=== PATIENT | male | born 1940 | race Caucasian/White ===

== ENCOUNTER 2017-02-26 19:25 | Emergency (ER) | payer MEDICARE ==
[~2017-02-26] VITALS: Ht 177.8 cm; Wt 111.8 kg
[~2017-02-26 19:25] MED LIST: AMLO10TA2 PO; ATOR40TA78 PO; FENO160T PO; FINA5TAB PO; LINA5TAB PO; LOSA100T6 PO; NIAC500T26 PO; TAMS-11 PO
[2017-02-26 21:07] VITALS: BP 179/75
== END 2017-02-26 21:44 | disposition home or self-care (01) ==
LOC: ED 20:42
DX: Z46.6 Encounter for fitting and adjustment of urinary device (principal); I25.10 Atherosclerotic heart disease of native coronary artery without angina pectoris; E11.9 Type 2 diabetes mellitus without complications; E78.00 Pure hypercholesterolemia, unspecified; I10 Essential (primary) hypertension
CPT/HCPCS: 99284

== ENCOUNTER 2017-04-02 13:08 | Emergency (ER) | payer MEDICARE ==
[~2017-04-02] VITALS: Ht 177.8 cm; Wt 110.7 kg
[2017-04-02 13:18] VITALS: BP 159/84
== END 2017-04-02 16:08 | disposition home or self-care (01) ==
LOC: ED 16:00
DX: N30.01 Acute cystitis with hematuria (principal); E11.9 Type 2 diabetes mellitus without complications; I11.9 Hypertensive heart disease without heart failure
CPT/HCPCS: 51702; 81001; 87077; 87086; 87186; 93005; 99285

== ENCOUNTER → 2017-07-18 | Outpatient (CLI) | payer MEDICARE | END | disposition home or self-care (01) | LOC: CFH 08:01 | PROVIDERS: ATTEND Physician Assistant | DX: I34.0 Nonrheumatic mitral (valve) insufficiency (principal); I25.9 Chronic ischemic heart disease, unspecified; I13.0 Hypertensive heart and chronic kidney disease with heart failure and stage 1 through stage 4 chronic kidney disease, or unspecified chronic kidney disease; E11.22 Type 2 diabetes mellitus with diabetic chronic kidney disease; N18.9 Chronic kidney disease, unspecified; I50.9 Heart failure, unspecified; E78.5 Hyperlipidemia, unspecified; I25.2 Old myocardial infarction; E78.1 Pure hyperglyceridemia; N40.1 Benign prostatic hyperplasia with lower urinary tract symptoms; R35.0 Frequency of micturition; I49.9 Cardiac arrhythmia, unspecified; D64.9 Anemia, unspecified; R97.20 Elevated prostate specific antigen [PSA]; G47.09 Other insomnia | CPT/HCPCS: 93306 ==

== ENCOUNTER 2017-07-27 09:23 | Inpatient (IN) | payer MEDICARE ==
[~2017-07-27] VITALS: Ht 177.8 cm; Wt 107.7 kg
[2017-07-27] MEDS ORDERED: ASPIRIN 81 MG TABLET CHEW PO ONE (10:00)
[2017-07-27] MEDS ORDERED: SODIUM CHLORIDE FLUSH 10ML SYR IVF ONE (10:00)
[2017-07-27 10:16] LABS: BASOPHILS # (AUTO) 0.02 x10^3/uL (0-0.1); BASOPHILS % (AUTO) 0 % (0-1); EOSINOPHILS # (AUTO) 0.16 x10^3/uL (0-0.4); EOSINOPHILS % (AUTO) 1 % (1-7); LYMPHOCYTES # (AUTO) 1.36 x10^3/uL (1-3.4); LYMPHOCYTES % (AUTO) 11 % (22-44); MD NO; MEAN CORPUSCULAR HEMOGLOBIN 30.2 pg (27.5-34.5); MEAN CORPUSCULAR HGB CONC 33.7 g/dL (33.2-36.2); MEAN CORPUSCULAR VOLUME 89.7 fL (81-97); MEAN PLATELET VOLUME 7.9 fL (7.4-10.4); MONOCYTES # (AUTO) 0.74 x10^3/uL (0.2-0.8); MONOCYTES % (AUTO) 6 % (2-9); NEUTROPHILS % (AUTO) 81 % (42-75); PLATELET COUNT 284 x10^3/uL (130-400); RED BLOOD COUNT 4.11 x10^6/uL (4.38-5.82); RED CELL DISTRIBUTION WIDTH 15.1 % (9.4-14.8)
[2017-07-27 10:27] LABS: ALANINE AMINOTRANSFERASE 22 U/L (12-78); ALBUMIN 3.8 g/dL (3.4-5.0); ANION GAP 11 mmol/L (5-15); CALCIUM 8.8 mg/dL (8.5-10.1); CHLORIDE 107 mmol/L (98-107); CREATININE 1.96 mg/dL (0.7-1.3)
[2017-07-27] MEDS ORDERED: ASPIRIN 81 MG TABLET CHEW ONE (10:27)
[2017-07-27 10:32] LABS: ALKALINE PHOSPHATASE 48 U/L (45-117); BILIRUBIN,TOTAL 0.7 mg/dL (0.2-1.0); TROPONIN I < 0.015 ng/mL (0.000-0.045)
[2017-07-27 10:42] LABS: INTERNATIONAL NORMALIZED RATIO 1.23 (0.93-1.1); PROTHROMBIN TIME 12.7 Seconds (9.6-11.5)
[2017-07-27] MEDS ORDERED: ACETAMINOPHEN 325 MG TABLET PO PRN (13:00)
[2017-07-27] MEDS ORDERED: ENALAPRILAT 1.25 MG/ML, 2ML IVPush PRN (13:00)
[2017-07-27] MEDS ORDERED: morphine SULFATE 10 MG/ML, 1ML IVPush PRN (13:00)
[2017-07-27] MEDS ORDERED: TEMAZEPAM 15 MG CAPSULE PO PRN (13:00)
[2017-07-27] MEDS ORDERED: ONDANSETRON ODT 4 MG PO PRN (13:00)
[2017-07-27] MEDS ORDERED: NITROGLYCERIN 0.4 MG BOTTLE (25 TABS) SL PRN (13:00)
[2017-07-27 13:34] LABS: TROPONIN I < 0.015 ng/mL (0.000-0.045)
[2017-07-27] MEDS ORDERED: AMLODIPINE 5 MG TABLET ONE (14:28)
[2017-07-27] MEDS: AMLODIPINE 5 MG TABLET PO SCH (14:31)
[2017-07-27 14:57] VITALS: BP 182/85
[2017-07-27 17:18] VITALS: BP 143/78
[2017-07-27 19:26] VITALS: BP 148/89
[2017-07-27 19:27] LABS: TROPONIN I < 0.015 ng/mL (0.000-0.045)
[2017-07-27] MEDS: ATORVASTATIN 40 MG TABLET PO SCH (20:36)
[2017-07-28 00:23] LABS: BASOPHILS # (AUTO) 0.04 x10^3/uL (0-0.1); BASOPHILS % (AUTO) 0 % (0-1); EOSINOPHILS # (AUTO) 0.17 x10^3/uL (0-0.4); EOSINOPHILS % (AUTO) 2 % (1-7); LYMPHOCYTES % (AUTO) 16 % (22-44); MD NO; MEAN CORPUSCULAR HEMOGLOBIN 29.8 pg (27.5-34.5); MEAN CORPUSCULAR HGB CONC 33.2 g/dL (33.2-36.2); MEAN CORPUSCULAR VOLUME 89.8 fL (81-97); MONOCYTES # (AUTO) 0.65 x10^3/uL (0.2-0.8); MONOCYTES % (AUTO) 6 % (2-9); NEUTROPHILS # (AUTO) 8.33 x10^3/uL (1.8-6.8); NEUTROPHILS % (AUTO) 76 % (42-75); PLATELET COUNT 253 x10^3/uL (130-400); RED BLOOD COUNT 3.79 x10^6/uL (4.38-5.82); RED CELL DISTRIBUTION WIDTH 15.2 % (9.4-14.8)
[2017-07-28 00:40] VITALS: BP 131/81
[2017-07-28] MEDS: OPIUM/BELLADONNA SUPP.RECT 16.2-30 MG PR PRN (02:56)
[2017-07-28 05:33] LABS: BASOPHILS # (AUTO) 0.02 x10^3/uL (0-0.1); BASOPHILS % (AUTO) 0 % (0-1); EOSINOPHILS # (AUTO) 0.13 x10^3/uL (0-0.4); EOSINOPHILS % (AUTO) 1 % (1-7); LYMPHOCYTES # (AUTO) 1.62 x10^3/uL (1-3.4); LYMPHOCYTES % (AUTO) 18 % (22-44); MD NO; MEAN CORPUSCULAR HEMOGLOBIN 30.4 pg (27.5-34.5); MEAN CORPUSCULAR HGB CONC 33.6 g/dL (33.2-36.2); MEAN CORPUSCULAR VOLUME 90.3 fL (81-97); MONOCYTES # (AUTO) 0.54 x10^3/uL (0.2-0.8); MONOCYTES % (AUTO) 6 % (2-9); NEUTROPHILS # (AUTO) 6.95 x10^3/uL (1.8-6.8); NEUTROPHILS % (AUTO) 75 % (42-75); PLATELET COUNT 263 x10^3/uL (130-400)
[2017-07-28 05:42] LABS: ANION GAP 9 mmol/L (5-15); CALCIUM 8.4 mg/dL (8.5-10.1); CHLORIDE 106 mmol/L (98-107); CHOLESTEROL, TOTAL 126 mg/dL (140-239); CREATININE 1.65 mg/dL (0.7-1.3); TRIGLYCERIDES 87 mg/dL (50-200); VLDL CHOLESTEROL 17 mg/dL (0-25)
[2017-07-28 05:44] LABS: CHOL/HDL RATIO 3.1; HDL CHOL % 33 % (26-37); HDL CHOLESTEROL (DIRECT) 41 mg/dL (40-60); LDL CHOLESTEROL,CALCULATED 68 mg/dL (54-169); LDL/HDL RATIO 1.7 (0.5-3.0)
[2017-07-28 06:55] VITALS: BP 159/77
[2017-07-28] MEDS ORDERED: REGADENOSON 0.4 MG/5 ML SYRINGE ONE (11:42)
[2017-07-28 14:14] VITALS: BP 167/72
[2017-07-28] MEDS: LOSARTAN 50MG TABLET PO SCH (14:19)
[2017-07-28] MEDS: AMLODIPINE 5 MG TABLET PO SCH (14:19)
[2017-07-28] MEDS: METOPROLOL TARTRATE 25 MG TABLET PO SCH (17:40)
[2017-07-28 20:08] VITALS: BP 123/76
[2017-07-28] MEDS: ATORVASTATIN 40 MG TABLET PO SCH (20:23)
[2017-07-29 00:34] VITALS: BP 111/69
[2017-07-29 05:40] LABS: BASOPHILS # (AUTO) 0.02 x10^3/uL (0-0.1); BASOPHILS % (AUTO) 0 % (0-1); EOSINOPHILS # (AUTO) 0.19 x10^3/uL (0-0.4); EOSINOPHILS % (AUTO) 2 % (1-7); LYMPHOCYTES # (AUTO) 1.99 x10^3/uL (1-3.4); LYMPHOCYTES % (AUTO) 23 % (22-44); MD NO; MEAN CORPUSCULAR HEMOGLOBIN 30.4 pg (27.5-34.5); MEAN CORPUSCULAR HGB CONC 34.1 g/dL (33.2-36.2); MEAN CORPUSCULAR VOLUME 89.2 fL (81-97); MEAN PLATELET VOLUME 7.9 fL (7.4-10.4); MONOCYTES % (AUTO) 8 % (2-9); NEUTROPHILS # (AUTO) 5.57 x10^3/uL (1.8-6.8); NEUTROPHILS % (AUTO) 66 % (42-75); PLATELET COUNT 265 x10^3/uL (130-400); RED BLOOD COUNT 3.37 x10^6/uL (4.38-5.82)
[2017-07-29 05:44] VITALS: BP 113/72
[2017-07-29] MEDS: METOPROLOL TARTRATE 25 MG TABLET PO SCH (05:45)
[2017-07-29 05:50] LABS: ALBUMIN 3.4 g/dL (3.4-5.0); ANION GAP 9 mmol/L (5-15); CALCIUM 8.4 mg/dL (8.5-10.1); CHLORIDE 108 mmol/L (98-107)
[2017-07-29 05:51] LABS: CREATININE 1.96 mg/dL (0.7-1.3)
[2017-07-29 08:01] VITALS: BP 131/76
[2017-07-29] MEDS: LOSARTAN 50MG TABLET PO SCH (09:34)
[2017-07-29] MEDS: AMLODIPINE 5 MG TABLET PO SCH (09:34)
[2017-07-29 13:24] VITALS: BP 130/77
[2017-07-29] MEDS: METOPROLOL SUCCINATE 25 MG TAB.ER.24H PO SCH (17:37)
[2017-07-29 18:55] VITALS: BP 114/67
[2017-07-29] MEDS: ATORVASTATIN 40 MG TABLET PO SCH (21:00)
[2017-07-30 01:23] VITALS: BP 126/73
[2017-07-30 05:26] LABS: BASOPHILS # (AUTO) 0.02 x10^3/uL (0-0.1); BASOPHILS % (AUTO) 0 % (0-1); EOSINOPHILS # (AUTO) 0.27 x10^3/uL (0-0.4); EOSINOPHILS % (AUTO) 3 % (1-7); LYMPHOCYTES # (AUTO) 1.85 x10^3/uL (1-3.4); LYMPHOCYTES % (AUTO) 21 % (22-44); MD NO; MEAN CORPUSCULAR HEMOGLOBIN 30.6 pg (27.5-34.5); MEAN CORPUSCULAR HGB CONC 34.3 g/dL (33.2-36.2); MEAN CORPUSCULAR VOLUME 89.1 fL (81-97); MEAN PLATELET VOLUME 7.8 fL (7.4-10.4); MONOCYTES # (AUTO) 0.72 x10^3/uL (0.2-0.8); MONOCYTES % (AUTO) 8 % (2-9); NEUTROPHILS # (AUTO) 5.82 x10^3/uL (1.8-6.8); NEUTROPHILS % (AUTO) 67 % (42-75); PLATELET COUNT 261 x10^3/uL (130-400); RED BLOOD COUNT 3.17 x10^6/uL (4.38-5.82); RED CELL DISTRIBUTION WIDTH 14.9 % (9.4-14.8)
[2017-07-30 05:31] LABS: ALBUMIN 3.3 g/dL (3.4-5.0); ANION GAP 8 mmol/L (5-15); CALCIUM 8.3 mg/dL (8.5-10.1); CHLORIDE 108 mmol/L (98-107)
[2017-07-30 05:33] LABS: CREATININE 1.85 mg/dL (0.7-1.3)
[2017-07-30 06:53] VITALS: BP 139/73
[2017-07-30] MEDS: LOSARTAN 50MG TABLET PO SCH (08:39)
[2017-07-30] MEDS: AMLODIPINE 5 MG TABLET PO SCH (08:39)
[2017-07-30 12:32] VITALS: BP 145/72
[2017-07-30] MEDS: METOPROLOL SUCCINATE 25 MG TAB.ER.24H PO SCH (17:54)
[2017-07-30] MEDS: ATORVASTATIN 40 MG TABLET PO SCH (19:55)
[2017-07-30 21:38] VITALS: BP 123/70
[2017-07-31 00:40] VITALS: BP 138/69
[2017-07-31] MEDS: OPIUM/BELLADONNA SUPP.RECT 16.2-30 MG PR PRN (01:58)
[2017-07-31 05:07] LABS: BASOPHILS # (AUTO) 0.02 x10^3/uL (0-0.1); BASOPHILS % (AUTO) 0 % (0-1); EOSINOPHILS # (AUTO) 0.25 x10^3/uL (0-0.4); EOSINOPHILS % (AUTO) 3 % (1-7); LYMPHOCYTES # (AUTO) 1.91 x10^3/uL (1-3.4); LYMPHOCYTES % (AUTO) 24 % (22-44); MD NO; MEAN CORPUSCULAR HEMOGLOBIN 30.6 pg (27.5-34.5); MEAN CORPUSCULAR VOLUME 89.8 fL (81-97); MEAN PLATELET VOLUME 7.8 fL (7.4-10.4); MONOCYTES # (AUTO) 0.62 x10^3/uL (0.2-0.8); MONOCYTES % (AUTO) 8 % (2-9); NEUTROPHILS # (AUTO) 5.26 x10^3/uL (1.8-6.8); NEUTROPHILS % (AUTO) 65 % (42-75); PLATELET COUNT 267 x10^3/uL (130-400); RED BLOOD COUNT 2.99 x10^6/uL (4.38-5.82); RED CELL DISTRIBUTION WIDTH 14.8 % (9.4-14.8)
[2017-07-31 05:18] LABS: CHLORIDE 108 mmol/L (98-107)
[2017-07-31 05:28] LABS: ALBUMIN 3.2 g/dL (3.4-5.0); ANION GAP 9 mmol/L (5-15); CALCIUM 8.3 mg/dL (8.5-10.1)
[2017-07-31 08:00] VITALS: BP 116/53
[2017-07-31] MEDS: AMLODIPINE 5 MG TABLET PO SCH (09:12)
[2017-07-31] MEDS: LOSARTAN 50MG TABLET PO SCH (09:12)
[2017-07-31] MEDS ORDERED: METO25TA91 PO (10:48)
== END 2017-07-31 11:10 | disposition home or self-care (01) | DRG 292 ==
LOC: ED 10:20 → EDIP 10:25 → 5SO 14:47 → 4NOR 07-29 20:38
PROVIDERS: ADMIT Internal Medicine; ATTEND Internal Medicine
DX: I13.0 Hypertensive heart and chronic kidney disease with heart failure and stage 1 through stage 4 chronic kidney disease, or unspecified chronic kidney disease (principal); N02.9 Recurrent and persistent hematuria with unspecified morphologic changes; E11.22 Type 2 diabetes mellitus with diabetic chronic kidney disease; I42.9 Cardiomyopathy, unspecified; R07.89 Other chest pain; I25.10 Atherosclerotic heart disease of native coronary artery without angina pectoris; I50.9 Heart failure, unspecified; N18.3 Chronic kidney disease, stage 3 (moderate); D72.829 Elevated white blood cell count, unspecified; E78.00 Pure hypercholesterolemia, unspecified; Z88.8 Allergy status to other drugs, medicaments and biological substances; I25.2 Old myocardial infarction; Z79.82 Long term (current) use of aspirin; Z87.891 Personal history of nicotine dependence; N40.0 Benign prostatic hyperplasia without lower urinary tract symptoms; I44.7 Left bundle-branch block, unspecified
CPT/HCPCS: 36415; 71045; 74176; 78452; 80048; 80053; 80061; 82040; 83036; 83735; 83880; 84443; 84484; 85025; 85610; 93005; 93017; 93308; 93321; 93325; 99285; J2785; A9502; C9898

== ENCOUNTER 2019-04-09 08:31 | Inpatient (IN) | payer MEDICARE ==
[~2019-04-09] VITALS: Ht 177.8 cm; Wt 96.7 kg
[~2019-04-09 08:31] MED LIST changes: -AMLO10TA2 PO; +AMLO10TA8 PO; +LOSA100T14 PO; -LOSA100T6 PO; +METO25TA91 PO
--- NOTE | 2019-04-09 08:55 | NUR ---
PATIENT PRESENTS TO ED TODAY FOR SOB X 1 WEEK, WORSE TODAY, DENIES PAIN/OTHER S/S, HX OF ND AND HEART ARRYTHMIA, SKIN WARM, PINK, DRY. DENIES RECENT TRAVEL/SURGERIES. 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
[2019-04-09 09:27] LABS: BASOPHILS # (AUTO) 0.03 x10^3/uL (0-0.1); BASOPHILS % (AUTO) 0 % (0-1); EOSINOPHILS # (AUTO) 0.93 x10^3/uL (0-0.4); EOSINOPHILS % (AUTO) 13 % (1-7); LYMPHOCYTES # (AUTO) 1.09 x10^3/uL (1-3.4); LYMPHOCYTES % (AUTO) 15 % (22-44); MD NO; MEAN CORPUSCULAR HEMOGLOBIN 30.4 pg (27.5-34.5); MEAN CORPUSCULAR HGB CONC 32.9 g/dL (33.2-36.2); MEAN CORPUSCULAR VOLUME 92.4 fL (81-97); MEAN PLATELET VOLUME 7.8 fL (7.4-10.4); MONOCYTES # (AUTO) 0.43 x10^3/uL (0.2-0.8); MONOCYTES % (AUTO) 6 % (2-9); NEUTROPHILS # (AUTO) 4.97 x10^3/uL (1.8-6.8); NEUTROPHILS % (AUTO) 67 % (42-75); PLATELET COUNT 292 x10^3/uL (130-400); RED BLOOD COUNT 4.91 x10^6/uL (4.38-5.82); RED CELL DISTRIBUTION WIDTH 14.6 % (9.4-14.8)
[2019-04-09] MEDS ORDERED: SODIUM CHLORIDE FLUSH 10ML SYR IVF ONE ×2 (09:30→10:00)
[2019-04-09 09:39] LABS: ALANINE AMINOTRANSFERASE 35 U/L (12-78); ALBUMIN 3.8 g/dL (3.4-5.0); ANION GAP 9 mmol/L (5-15); CHLORIDE 107 mmol/L (98-107); CREATININE 1.49 mg/dL (0.7-1.3)
[2019-04-09 09:43] LABS: ALKALINE PHOSPHATASE 84 U/L (45-117); BILIRUBIN,TOTAL 0.8 mg/dL (0.2-1.0); TOTAL PROTEIN 8.1 g/dL (6.4-8.2); TROPONIN I 0.019 ng/mL (0.000-0.045)
[2019-04-09] MEDS ORDERED: CEFTRIAXONE PMX 1GM/50ML 50 ML ONE (09:53)
--- NOTE | 2019-04-09 09:56 | NUR ---
NEW ORDERS, PATIENT TO BE ADMITTED, ABX TO BE ADMINISTERED AFTER 2ND BLOOD CULTURES HAVE BEEN DRAWN. VS UPDATED IN CHART, PATIENT UPDATED ON POC, PATIENT SITTING IN GURNEY WATCHING TV, RESP EVEN/UNLABORED. NO ADDITIONAL NEEDS AT THIS TIME.
[2019-04-09] MEDS ORDERED: CEFTRIAXONE PMX 1GM/50ML 50 ML IVPB ONE (10:00)
--- NOTE | 2019-04-09 10:36 | NUR ---
CALLED LAB REGARDING NEED FOR SECOND BLOOD CULTURE, LAB AWARE. PATIENT RESTING IN GURNEY, WATCHING TV, NADN.
--- NOTE | 2019-04-09 10:51 | NUR ---
2ND BLOOD CULTURE DRAWN PRIOR TO ABX, ABX ADMINISTERED AT THIS TIME. [facility] AWAITING REPORT.
--- NOTE | 2019-04-09 11:27 | NUR ---
BREAK RN FOR PRIMARY RN NAT. PT RESTING IN POSITION OF COMFORT. DENIES ANY PAIN, CP, SOB AT THIS TIME OR NEED TO USE RESTROOM. WATCHING TV. VSS, PULSE OX 94% RA, RESP REGULAR AND UNLABORED. IV ROCEPHIN COMPLETED. IV SALINE LOCKED. REPORT GIVEN TO FLOOR RN SONYA FOR ROM 376 AT THIS TIME. FALL PRECAUTIONS IN PLACE. SR ON MONITOR WITH OCCASIONAL PVC NOTED, DISCUSSED VITALS WITH DR. CANELA, AWARE, NO NEW ORDERS RECEIVED. PT AWAITING TRANSPORT TO FLOOR.
--- NOTE | 2019-04-09 11:37 | NUR ---
BEDSIDE REPORT AND CARE BACK TO PRIMARY RN NAT.
[2019-04-09] MEDS ORDERED: ACETAMINOPHEN 325 MG TABLET PO PRN (12:00)
[2019-04-09] MEDS ORDERED: CEFTRIAXONE PMX 1GM/50ML 50 ML IV SCH (12:00)
[2019-04-09] MEDS ORDERED: ONDANSETRON 2MG/ML, 2ML IVPush PRN (12:00)
[2019-04-09] MEDS ORDERED: ONDANSETRON ODT 4 MG PO PRN (12:00)
--- NOTE | 2019-04-09 12:07 | NUR ---
PATIENT TRANSFERRED/ADMITTED TO HOSPITAL BED UPSTAIRS.
[2019-04-09 13:16] LABS: HEMOGLOBIN A1C 6.3 % (4.2-6.3)
[2019-04-09] MEDS: DOXYCYCLINE 100 MG in DEXTROSE 5% 250 ML IV SCH (13:17)
[2019-04-09 14:30] VITALS: BP 150/101
[2019-04-09 15:00] VITALS: BP 150/101
[2019-04-09] MEDS ORDERED: LOSA100T14 PO (16:07)
[2019-04-09 17:59] LABS: RAPID INFLUENZA A Negative (Negative); RAPID INFLUENZA B Negative (Negative)
[2019-04-09 19:30] VITALS: BP 122/77
[2019-04-09 19:49] VITALS: BP 143/96
[2019-04-10] MEDS: DOXYCYCLINE 100 MG in DEXTROSE 5% 250 ML IV SCH (01:18)
[2019-04-10 01:52] VITALS: BP 117/77
[2019-04-10 05:44] LABS: BASOPHILS # (AUTO) 0.05 x10^3/uL (0-0.1); BASOPHILS % (AUTO) 1 % (0-1); EOSINOPHILS # (AUTO) 1.11 x10^3/uL (0-0.4); EOSINOPHILS % (AUTO) 15 % (1-7); LYMPHOCYTES # (AUTO) 1.48 x10^3/uL (1-3.4); LYMPHOCYTES % (AUTO) 21 % (22-44); MD NO; MEAN CORPUSCULAR HEMOGLOBIN 30.4 pg (27.5-34.5); MEAN CORPUSCULAR HGB CONC 33.1 g/dL (33.2-36.2); MEAN PLATELET VOLUME 7.8 fL (7.4-10.4); MONOCYTES # (AUTO) 0.44 x10^3/uL (0.2-0.8); MONOCYTES % (AUTO) 6 % (2-9); NEUTROPHILS % (AUTO) 57 % (42-75); PLATELET COUNT 252 x10^3/uL (130-400); RED CELL DISTRIBUTION WIDTH 14.7 % (9.4-14.8)
[2019-04-10 05:54] LABS: ALANINE AMINOTRANSFERASE 27 U/L (12-78); ALBUMIN 3.3 g/dL (3.4-5.0); ANION GAP 8 mmol/L (5-15); CALCIUM 8.6 mg/dL (8.5-10.1); CHLORIDE 108 mmol/L (98-107)
[2019-04-10 06:04] LABS: ALKALINE PHOSPHATASE 73 U/L (45-117); BILIRUBIN,TOTAL 0.7 mg/dL (0.2-1.0); TOTAL PROTEIN 7.1 g/dL (6.4-8.2)
[2019-04-10 08:18] VITALS: BP 138/95
[2019-04-10] MEDS ORDERED: METOPROLOL SUCCINATE 25 MG TAB.ER.24H PO SCH (08:30)
[2019-04-10] MEDS ORDERED: SPIRONOLACTONE 25 MG TABLET PO SCH (09:00)
[2019-04-10] MEDS ORDERED: LISINOPRIL 5 MG TABLET PO SCH (09:00)
[2019-04-10] MEDS ORDERED: DOXYCYCLINE 100MG TABLET PO SCH (09:00)
[2019-04-10] MEDS ORDERED: LISI5TAB7 PO (09:33)
[2019-04-10] MEDS ORDERED: CEFD300C37 PO (09:33)
[2019-04-10] MEDS ORDERED: METO25TA91 PO (09:33)
[2019-04-10] MEDS ORDERED: SPIR25TA PO (09:33)
[2019-04-10] MEDS ORDERED: DOXY-162 PO (09:33)
[2019-04-10] MEDS ORDERED: FLU VACC QS2019-20 36MOS UP/PF 0.5 ML IM ONE (11:00)
== END 2019-04-10 11:20 | disposition home or self-care (01) | DRG 871 ==
LOC: ED 09:50 → EDIP 09:51 → ED 10:04 → 3N 11:59 → DCLOUNGE 04-10 11:12
PROVIDERS: ADMIT Internal Medicine; ATTEND Internal Medicine
DX: A41.9 Sepsis, unspecified organism (principal); J15.9 Unspecified bacterial pneumonia; E11.22 Type 2 diabetes mellitus with diabetic chronic kidney disease; E78.00 Pure hypercholesterolemia, unspecified; E78.5 Hyperlipidemia, unspecified; I13.10 Hypertensive heart and chronic kidney disease without heart failure, with stage 1 through stage 4 chronic kidney disease, or unspecified chronic kidney disease; I25.10 Atherosclerotic heart disease of native coronary artery without angina pectoris; I25.2 Old myocardial infarction; I25.5 Ischemic cardiomyopathy; I44.7 Left bundle-branch block, unspecified; N18.3 Chronic kidney disease, stage 3 (moderate); N40.0 Benign prostatic hyperplasia without lower urinary tract symptoms; Z79.4 Long term (current) use of insulin; Z82.3 Family history of stroke; Z82.49 Family history of ischemic heart disease and other diseases of the circulatory system; Z83.3 Family history of diabetes mellitus; Z91.14 Patient's other noncompliance with medication regimen
CPT/HCPCS: 36415; 71045; 80053; 83036; 83605; 84145; 84443; 84484; 85025; 87040; 87400; 90686; 93005; 93306; 99285; G0378; J0696; J7060; Q0162

== ENCOUNTER 2019-05-07 10:04 | Outpatient (CLI) | payer MEDICARE ==
[~2019-05-07 10:04] MED LIST changes: +CEFD300C37 PO; +DOXY-162 PO; +LISI5TAB7 PO; +SPIR25TA PO
== END 2019-05-07 23:59 | disposition home or self-care (01) ==
LOC: RAD 10:04
PROVIDERS: ATTEND Internal Medicine
DX: I51.7 Cardiomegaly (principal); J18.9 Pneumonia, unspecified organism; E11.9 Type 2 diabetes mellitus without complications; I50.9 Heart failure, unspecified; E78.1 Pure hyperglyceridemia; Z82.49 Family history of ischemic heart disease and other diseases of the circulatory system
CPT/HCPCS: 71046

== ENCOUNTER 2019-05-08 14:37 | Inpatient (IN) | payer MEDICARE ==
[~2019-05-08] VITALS: Ht 177.8 cm; Wt 89.4 kg
--- NOTE | 2019-05-08 15:13 | NUR ---
PT ARRIVES TO ED WITH C/O NOT FEELING BETTER AND HAD PNEUMONIA A FEW WEEKS AGO AND IS CONCERNED IT HAS NOT GONE AWAY. PT APPEARS PALE ON ARRIVAL AND HAS MILD JVD PRESENT. PT DENIES SOB WITH WALKING. PT IS NOT HYPOXIC WELL. PT CONNECTED TO MONITORS AND CALL LIGHT IN REACH. PT HAS GOOD CAP REFILL AND STRONG PULSES.
[2019-05-08] MEDS ORDERED: SODIUM CHLORIDE FLUSH 10ML SYR IVF ONE (15:30)
[2019-05-08 15:38] LABS: BASOPHILS # (AUTO) 0.01 x10^3/uL (0-0.1); BASOPHILS % (AUTO) 0 % (0-1); EOSINOPHILS # (AUTO) 0.35 x10^3/uL (0-0.4); EOSINOPHILS % (AUTO) 4 % (1-7); LYMPHOCYTES # (AUTO) 0.86 x10^3/uL (1-3.4); LYMPHOCYTES % (AUTO) 10 % (22-44); MD NO; MEAN CORPUSCULAR HEMOGLOBIN 30.1 pg (27.5-34.5); MEAN CORPUSCULAR HGB CONC 32.5 g/dL (33.2-36.2); MEAN CORPUSCULAR VOLUME 92.5 fL (81-97); MEAN PLATELET VOLUME 8.2 fL (7.4-10.4); MONOCYTES # (AUTO) 0.45 x10^3/uL (0.2-0.8); MONOCYTES % (AUTO) 6 % (2-9); NEUTROPHILS # (AUTO) 6.63 x10^3/uL (1.8-6.8); NEUTROPHILS % (AUTO) 80 % (42-75); PLATELET COUNT 237 x10^3/uL (130-400); RED BLOOD COUNT 4.49 x10^6/uL (4.38-5.82); RED CELL DISTRIBUTION WIDTH 17.4 % (9.4-14.8)
[2019-05-08 15:46] LABS: RAPID INFLUENZA A Negative (Negative); RAPID INFLUENZA B Negative (Negative)
[2019-05-08 15:49] LABS: ALANINE AMINOTRANSFERASE 36 U/L (12-78); ALBUMIN 3.1 g/dL (3.4-5.0); ANION GAP 9 mmol/L (5-15); CALCIUM 8.4 mg/dL (8.5-10.1); CHLORIDE 108 mmol/L (98-107); CREATININE 1.36 mg/dL (0.7-1.3)
[2019-05-08 15:54] LABS: ALKALINE PHOSPHATASE 87 U/L (45-117); BILIRUBIN,TOTAL 0.7 mg/dL (0.2-1.0); TROPONIN I < 0.015 ng/mL (0.000-0.045)
[2019-05-08 15:57] LABS: D-DIMER 9.36 ug/mlFEU (0.00-0.52); INTERNATIONAL NORMALIZED RATIO 1.33 (0.93-1.1); PROTHROMBIN TIME 13.8 Seconds (9.6-11.5)
[2019-05-08] MEDS ORDERED: SODIUM CHLORIDE 0.9% 1,000ML IVBOLUS ONE (16:30)
--- NOTE | 2019-05-08 16:46 | NUR ---
PIV PLACED PT READY FOR CT.
[2019-05-08] MEDS ORDERED: OMNIPAQUE 350 MG/ML, 100ML BOTTLE ONE (17:19)
--- NOTE | 2019-05-08 17:43 | NUR ---
report to esdras martell
[2019-05-08] MEDS ORDERED: ACETAMINOPHEN 325 MG TABLET PO PRN (18:00)
[2019-05-08] MEDS ORDERED: FUROSEMIDE 20 MG/2 ML IV ONE (18:00)
[2019-05-08] MEDS ORDERED: ONDANSETRON ODT 4 MG PO PRN (18:00)
[2019-05-08] MEDS ORDERED: POLYETHYLENE GLYCOL 17 GM PACKET PO PRN (18:00)
[2019-05-08] MEDS ORDERED: BISACODYL 10 MG SUPP PR PRN (18:00)
--- NOTE | 2019-05-08 18:07 | NUR ---
TASK RN: PT RESTING ON CESAR. RYAN. AWAITING TRANSPORT FOR PT TO BE TAKEN TO FLOOR.
[2019-05-08] MEDS ORDERED: HEPARIN 5,000 UNITS/ML, 1ML IV ONE (18:30)
[2019-05-08 18:34] VITALS: BP 138/85
[2019-05-08] MEDS: HEPARIN 25,000 UNITS/500ML PMX 500 ML IV PRN (18:43)
[2019-05-08 20:39] LABS: MICROSCOPIC AUTO
[2019-05-08 20:48] LABS: CULTURE INDICATED? YES
[2019-05-08 21:55] LABS: TROPONIN I < 0.015 ng/mL (0.000-0.045)
[2019-05-08] MEDS: SODIUM CHLORIDE FLUSH 10ML SYR IVF SCH (22:45)
[2019-05-09 01:01] VITALS: BP 121/86
[2019-05-09] MEDS: HEPARIN 5,000 UNITS/ML, 1ML IV PRN ×3 (01:27→21:55)
[2019-05-09 03:08] LABS: BASOPHILS # (AUTO) 0.06 x10^3/uL (0-0.1); BASOPHILS % (AUTO) 1 % (0-1); EOSINOPHILS # (AUTO) 0.48 x10^3/uL (0-0.4); EOSINOPHILS % (AUTO) 6 % (1-7); LYMPHOCYTES # (AUTO) 1.54 x10^3/uL (1-3.4); LYMPHOCYTES % (AUTO) 20 % (22-44); MD NO; MEAN CORPUSCULAR HEMOGLOBIN 30.8 pg (27.5-34.5); MEAN CORPUSCULAR VOLUME 93.2 fL (81-97); MONOCYTES # (AUTO) 0.54 x10^3/uL (0.2-0.8); MONOCYTES % (AUTO) 7 % (2-9); NEUTROPHILS # (AUTO) 5.27 x10^3/uL (1.8-6.8); NEUTROPHILS % (AUTO) 67 % (42-75); PLATELET COUNT 234 x10^3/uL (130-400); RED BLOOD COUNT 4.32 x10^6/uL (4.38-5.82); RED CELL DISTRIBUTION WIDTH 17.1 % (9.4-14.8)
[2019-05-09 03:21] LABS: ALANINE AMINOTRANSFERASE 38 U/L (12-78); ALBUMIN 2.9 g/dL (3.4-5.0); ANION GAP 11 mmol/L (5-15); CALCIUM 8.2 mg/dL (8.5-10.1); CHLORIDE 108 mmol/L (98-107); CREATININE 1.35 mg/dL (0.7-1.3)
[2019-05-09 03:26] LABS: ALKALINE PHOSPHATASE 81 U/L (45-117); TOTAL PROTEIN 6.7 g/dL (6.4-8.2); TROPONIN I 0.018 ng/mL (0.000-0.045)
[2019-05-09] MEDS ORDERED: METOPROLOL SUCCINATE 25 MG TAB.ER.24H PO SCH (06:00)
[2019-05-09 06:16] VITALS: BP 122/92
[2019-05-09 08:08] LABS: ALBUMIN 2.9 g/dL (3.4-5.0); ANION GAP 10 mmol/L (5-15); CALCIUM 8.4 mg/dL (8.5-10.1); CHLORIDE 108 mmol/L (98-107)
[2019-05-09 08:11] LABS: ALANINE AMINOTRANSFERASE 35 U/L (12-78); ALKALINE PHOSPHATASE 82 U/L (45-117); BILIRUBIN,TOTAL 0.9 mg/dL (0.2-1.0); CREATININE 1.27 mg/dL (0.7-1.3); TOTAL PROTEIN 6.8 g/dL (6.4-8.2)
[2019-05-09] MEDS: SODIUM CHLORIDE FLUSH 10ML SYR IVF SCH ×2 (08:18→21:56)
[2019-05-09] MEDS: SENNA/DOCUSATE TABLET PO SCH (08:19)
[2019-05-09] MEDS ORDERED: MAGNESIUM SULFATE 3 GM in SODIUM CHLORIDE 0.9% 100 ML IV ONE (08:30)
[2019-05-09] MEDS ORDERED: SPIRONOLACTONE 25 MG TABLET PO SCH (09:00)
[2019-05-09] MEDS ORDERED: LISINOPRIL 5 MG TABLET PO SCH (09:00)
[2019-05-09] MEDS: CEFDINIR 300 MG CAPSULE PO SCH ×2 (10:48→21:55)
[2019-05-09 13:42] VITALS: BP 136/95
[2019-05-09] MEDS ORDERED: MAGNESIUM SULFATE PMX 2GM/50ML 50 ML IV ONE (15:30)
[2019-05-09] MEDS: FUROSEMIDE 20 MG/2 ML IV SCH (17:54)
[2019-05-09] MEDS: HEPARIN 25,000 UNITS/500ML PMX 500 ML IV PRN (17:56)
[2019-05-09] MEDS: POTASSIUM CHLORIDE 20 MEQ TAB.ER.PRT PO SCH (17:56)
[2019-05-09 18:55] VITALS: BP 129/90
[2019-05-09] MEDS: LISINOPRIL 5 MG TABLET PO SCH (21:56)
[2019-05-09 21:59] VITALS: BP 136/92
[2019-05-10 01:31] VITALS: BP 126/85
[2019-05-10 06:00] VITALS: BP 136/98
[2019-05-10] MEDS: METOPROLOL SUCCINATE 50 MG TAB.ER.24H PO SCH (06:03)
[2019-05-10 06:35] LABS: ANION GAP 9 mmol/L (5-15); CALCIUM 8.5 mg/dL (8.5-10.1); CHLORIDE 109 mmol/L (98-107)
[2019-05-10 06:38] LABS: ALANINE AMINOTRANSFERASE 36 U/L (12-78); ALKALINE PHOSPHATASE 84 U/L (45-117); BILIRUBIN,TOTAL 0.9 mg/dL (0.2-1.0); CREATININE 1.37 mg/dL (0.7-1.3)
[2019-05-10 07:51] VITALS: BP 128/92
[2019-05-10] MEDS: CEFDINIR 300 MG CAPSULE PO SCH ×2 (08:19→20:54)
[2019-05-10] MEDS: FUROSEMIDE 20 MG/2 ML IV SCH ×2 (08:20→17:00)
[2019-05-10] MEDS: POTASSIUM CHLORIDE 20 MEQ TAB.ER.PRT PO SCH ×2 (08:20→16:55)
[2019-05-10] MEDS: SENNA/DOCUSATE TABLET PO SCH (08:20)
[2019-05-10] MEDS: LISINOPRIL 5 MG TABLET PO SCH ×2 (08:21→20:54)
[2019-05-10] MEDS: SODIUM CHLORIDE FLUSH 10ML SYR IVF SCH ×2 (08:21→20:53)
[2019-05-10] MEDS: SPIRONOLACTONE 25 MG TABLET PO SCH (08:22)
[2019-05-10] MEDS ORDERED: ASPIRIN 81 MG TABLET CHEW PO SCH (09:00)
[2019-05-10] MEDS: GUAIFENESIN 200 MG TABLET PO SCH ×3 (11:11→20:54)
[2019-05-10 13:01] VITALS: BP 133/84
[2019-05-10] MEDS: HEPARIN 25,000 UNITS/500ML PMX 500 ML IV PRN (15:04)
[2019-05-10 20:19] VITALS: BP 108/75
[2019-05-10 20:53] VITALS: BP 119/81
[2019-05-11 00:40] VITALS: BP 115/69
[2019-05-11 05:58] VITALS: BP 112/73
[2019-05-11] MEDS: METOPROLOL SUCCINATE 50 MG TAB.ER.24H PO SCH (06:00)
[2019-05-11] MEDS: GUAIFENESIN 200 MG TABLET PO SCH ×4 (06:00→20:36)
[2019-05-11 06:12] LABS: ALBUMIN 2.8 g/dL (3.4-5.0); ANION GAP 10 mmol/L (5-15); CALCIUM 8.3 mg/dL (8.5-10.1); CHLORIDE 107 mmol/L (98-107)
[2019-05-11 06:15] LABS: ALANINE AMINOTRANSFERASE 31 U/L (12-78); ALKALINE PHOSPHATASE 79 U/L (45-117); BILIRUBIN,TOTAL 0.7 mg/dL (0.2-1.0); CREATININE 1.44 mg/dL (0.7-1.3); TOTAL PROTEIN 6.5 g/dL (6.4-8.2)
[2019-05-11 06:31] VITALS: BP 126/85
[2019-05-11] MEDS ORDERED: APIXABAN 5 MG TABLET PO ONE (08:00)
[2019-05-11] MEDS: POTASSIUM CHLORIDE 20 MEQ TAB.ER.PRT PO SCH ×2 (09:00→09:55)
[2019-05-11] MEDS: CEFDINIR 300 MG CAPSULE PO SCH ×2 (09:55→20:36)
[2019-05-11] MEDS: FUROSEMIDE 20 MG TABLET PO SCH ×2 (09:56→17:13)
[2019-05-11] MEDS: LISINOPRIL 5 MG TABLET PO SCH (09:56)
[2019-05-11] MEDS: SPIRONOLACTONE 25 MG TABLET PO SCH (09:56)
[2019-05-11] MEDS: SENNA/DOCUSATE TABLET PO SCH (09:57)
[2019-05-11] MEDS: SODIUM CHLORIDE FLUSH 10ML SYR IVF SCH ×2 (10:00→20:37)
[2019-05-11 12:25] VITALS: BP 129/88
[2019-05-11] MEDS: FLUTICASONE NASAL SPRAY 16GM NAS SCH ×3 (15:31→20:38)
[2019-05-11] MEDS ORDERED: LISI5TAB7 PO (16:43)
[2019-05-11] MEDS ORDERED: POTA20TA6 PO (16:43)
[2019-05-11] MEDS ORDERED: METO-93 PO (16:43)
[2019-05-11] MEDS ORDERED: GUAI200T37 PO (16:43)
[2019-05-11] MEDS ORDERED: FURO20TA3 PO (16:43)
[2019-05-11] MEDS ORDERED: CEFD300C37 PO (16:43)
[2019-05-11] MEDS ORDERED: APIX5TAB PO (16:43)
[2019-05-11] MEDS ORDERED: SPIR25TA PO (16:43)
[2019-05-11 17:12] VITALS: BP 129/85
[2019-05-11 20:01] VITALS: BP 110/79
[2019-05-11] MEDS: APIXABAN 5 MG TABLET PO SCH (20:36)
[2019-05-12 02:00] VITALS: BP 112/76
[2019-05-12 05:00] LABS: CHLORIDE 106 mmol/L (98-107)
[2019-05-12 05:11] LABS: ALANINE AMINOTRANSFERASE 32 U/L (12-78); ALBUMIN 2.9 g/dL (3.4-5.0); ALKALINE PHOSPHATASE 84 U/L (45-117); ANION GAP 7 mmol/L (5-15); BILIRUBIN,TOTAL 0.7 mg/dL (0.2-1.0); CALCIUM 8.4 mg/dL (8.5-10.1); CREATININE 1.45 mg/dL (0.7-1.3); TOTAL PROTEIN 6.9 g/dL (6.4-8.2)
[2019-05-12 05:45] VITALS: BP 122/81
[2019-05-12] MEDS: GUAIFENESIN 200 MG TABLET PO SCH (05:47)
[2019-05-12] MEDS: METOPROLOL SUCCINATE 50 MG TAB.ER.24H PO SCH (05:48)
[2019-05-12] MEDS: SPIRONOLACTONE 25 MG TABLET PO SCH (08:15)
[2019-05-12] MEDS: POTASSIUM CHLORIDE 20 MEQ TAB.ER.PRT PO SCH (08:15)
[2019-05-12] MEDS: FUROSEMIDE 20 MG TABLET PO SCH (08:15)
[2019-05-12] MEDS: CEFDINIR 300 MG CAPSULE PO SCH (08:15)
[2019-05-12] MEDS: APIXABAN 5 MG TABLET PO SCH (08:16)
[2019-05-12] MEDS: FLUTICASONE NASAL SPRAY 16GM NAS SCH (08:16)
[2019-05-12] MEDS: SODIUM CHLORIDE FLUSH 10ML SYR IVF SCH (08:16)
[2019-05-12] MEDS: SENNA/DOCUSATE TABLET PO SCH (08:19)
[2019-05-12 08:38] VITALS: BP 117/73
[2019-05-12] MEDS ORDERED: LISINOPRIL 5 MG TABLET PO SCH (09:00)
[2019-05-18] MEDS ORDERED: APIXABAN 5 MG TABLET PO SCH (09:00)
== END 2019-05-12 11:30 | disposition home or self-care (01) | DRG 175 ==
LOC: ED 17:04 → EDIP 17:05 → ED 17:22 → 4WST 18:20 → DCLOUNGE 05-12 11:18
PROVIDERS: ADMIT Family Medicine; ATTEND Internal Medicine
DX: I26.99 Other pulmonary embolism without acute cor pulmonale (principal); I50.23 Acute on chronic systolic (congestive) heart failure; J18.9 Pneumonia, unspecified organism; E87.1 Hypo-osmolality and hyponatremia; E87.2 Acidosis; I13.0 Hypertensive heart and chronic kidney disease with heart failure and stage 1 through stage 4 chronic kidney disease, or unspecified chronic kidney disease; I42.8 Other cardiomyopathies; I47.2 Ventricular tachycardia; N39.0 Urinary tract infection, site not specified; E11.22 Type 2 diabetes mellitus with diabetic chronic kidney disease; E78.00 Pure hypercholesterolemia, unspecified; E78.5 Hyperlipidemia, unspecified; E83.42 Hypomagnesemia; E86.0 Dehydration; I25.10 Atherosclerotic heart disease of native coronary artery without angina pectoris; I34.0 Nonrheumatic mitral (valve) insufficiency; I49.3 Ventricular premature depolarization; N18.3 Chronic kidney disease, stage 3 (moderate); N40.0 Benign prostatic hyperplasia without lower urinary tract symptoms; I25.2 Old myocardial infarction; Z79.84 Long term (current) use of oral hypoglycemic drugs; Z82.3 Family history of stroke; Z82.49 Family history of ischemic heart disease and other diseases of the circulatory system; Z83.3 Family history of diabetes mellitus; Z86.711 Personal history of pulmonary embolism; Z87.01 Personal history of pneumonia (recurrent); Z87.891 Personal history of nicotine dependence; Z91.19 Patient's noncompliance with other medical treatment and regimen; Z88.8 Allergy status to other drugs, medicaments and biological substances
CPT/HCPCS: 36415; 71045; 71275; 80053; 81001; 83605; 83735; 83880; 84436; 84443; 84484; 85025; 85379; 85520; 85610; 87077; 87086; 87186; 87400; 93005; 93970; 99291; G0378; J1644; J3475; Q0162; Q9967; J1940; J7030

== ENCOUNTER → 2020-02-21 | Outpatient (CLI) | payer MEDICARE ==
[~2020-02-21] MED LIST changes: +APIX5TAB PO; +FURO20TA3 PO; +FURO40TA6 PO; +GUAI200T37 PO; +HYDR-3342 PO; +ISOS30TA8 PO; +METO-93 PO; +POTA20TA6 PO; +SPIR50TA PO
== END | disposition home or self-care (01) ==
LOC: CFH 07:14
PROVIDERS: ATTEND Internal Medicine Cardiovascular Disease
DX: I08.0 Rheumatic disorders of both mitral and aortic valves (principal); E11.9 Type 2 diabetes mellitus without complications; E78.5 Hyperlipidemia, unspecified; I10 Essential (primary) hypertension
CPT/HCPCS: 93306

== ENCOUNTER → 2020-07-30 | Outpatient (CLI) | payer MEDICARE ==
[~2020-07-30] MED LIST changes: +AMLO-211 PO; -AMLO10TA8 PO
== END | disposition home or self-care (01) ==
LOC: CFH 09:43
PROVIDERS: ATTEND Internal Medicine Cardiovascular Disease
DX: I08.8 Other rheumatic multiple valve diseases (principal); I42.8 Other cardiomyopathies
CPT/HCPCS: 93306

== ENCOUNTER → 2020-09-08 | Outpatient (CLI) | payer MEDICARE | END | disposition home or self-care (01) | LOC: CVU 06:22 | PROVIDERS: ATTEND Internal Medicine | DX: I70.203 Unspecified atherosclerosis of native arteries of extremities, bilateral legs (principal); I10 Essential (primary) hypertension; E11.9 Type 2 diabetes mellitus without complications; I48.91 Unspecified atrial fibrillation; E78.5 Hyperlipidemia, unspecified | CPT/HCPCS: 93922; 93925 ==

== ENCOUNTER 2021-03-09 20:17 | Emergency (ER) | payer MEDICARE ==
[~2021-03-09] VITALS: Ht 175.3 cm; Wt 104.7 kg
[~2021-03-09 20:17] MED LIST changes: +BLOO-1456; +INSU100I11 SQ-INSULIN; +INSU100I13 SQ-INSULIN; +LANC1COM6; +LOSA25TA25 PO; +POTA-143 PO; -POTA20TA6 PO; +[UNRECOGNIZED DRUG - CODE]
--- NOTE | 2021-03-09 20:23 | NUR ---
EKG DONE IN TRIAGE
--- NOTE | 2021-03-09 20:39 | NUR ---
marcia Chamorro at bedside for eval
--- NOTE | 2021-03-09 20:39 | NUR ---
pt to room from lobby
[2021-03-09] MEDS ORDERED: ONDANSETRON 2MG/ML, 2ML ONE ×2 (20:59→23:02)
[2021-03-09] MEDS ORDERED: ONDANSETRON 2MG/ML, 2ML IVPush ONE ×2 (21:00→23:00)
[2021-03-09] MEDS ORDERED: SODIUM CHLORIDE FLUSH 10ML SYR IVF ONE (21:00)
[2021-03-09 21:34] LABS: BASOPHILS % (AUTO) 1 % (0-1); EOSINOPHILS % (AUTO) 1 % (1-7); LYMPHOCYTES % (AUTO) 21 % (22-44); MEAN CORPUSCULAR HEMOGLOBIN 31.2 pg (27.5-34.5); MEAN CORPUSCULAR HGB CONC 33.7 g/dL (33.2-36.2); MONOCYTES % (AUTO) 7 % (2-9); NEUTROPHILS % (AUTO) 71 % (42-75); PLATELET COUNT 323 x10^3/uL (130-400); RED CELL DISTRIBUTION WIDTH 15.8 % (9.4-14.8)
[2021-03-09 21:41] LABS: ALANINE AMINOTRANSFERASE 49 U/L (12-78); ALBUMIN 3.4 g/dL (3.4-5.0); ANION GAP 13 mmol/L (5-15); CALCIUM 8.7 mg/dL (8.5-10.1); CHLORIDE 107 mmol/L (98-107); CREATININE 1.47 mg/dL (0.7-1.3)
[2021-03-09 21:45] LABS: ALKALINE PHOSPHATASE 96 U/L (45-117); BILIRUBIN,TOTAL 1.6 mg/dL (0.2-1.0); TOTAL PROTEIN 7.8 g/dL (6.4-8.2); TROPONIN I < 0.015 ng/mL (0.000-0.045)
--- NOTE | 2021-03-09 22:00 | NUR ---
pt states decreased nausea after medication, vss, nadn. awaiting radiology results and dispo
[2021-03-09] MEDS ORDERED: DOXYCYCLINE 100MG TABLET ONE (22:56)
[2021-03-09] MEDS ORDERED: DOXYCYCLINE 100MG TABLET PO ONE (23:00)
[2021-03-09 23:06] VITALS: BP 141/102
--- NOTE | 2021-03-09 23:41 | NUR ---
pt medicated per order, tolerated well. pt educated on dc instructions and verbalized undertsanding. ambulatory to dc desk with steady gait.
== END 2021-03-09 23:44 | disposition home or self-care (01) ==
LOC: ED 23:16
DX: J15.9 Unspecified bacterial pneumonia (principal); E11.9 Type 2 diabetes mellitus without complications; I11.0 Hypertensive heart disease with heart failure; I50.9 Heart failure, unspecified; E78.00 Pure hypercholesterolemia, unspecified; I25.2 Old myocardial infarction; Z20.822 Contact with and (suspected) exposure to COVID-19
CPT/HCPCS: 36415; 71045; 76700; 80053; 83690; 84484; 85025; 93005; 96374; 96375; 99285; J2405; U0003; U0005